=== PATIENT | female | born 1950 | race Hispanic/Latino ===

== ENCOUNTER → 2019-10-20 | Outpatient (CLI) | payer MEDICARE ==
--- NOTE | 2019-09-20 12:50 | NUR ---
PT WAS A NO SHOW FOR THIS DATE OF SERVICE
[~2019-10-20] VITALS: Ht 162.6 cm; Wt 82.1 kg
[~2019-10-20] MED LIST: REGADENOSON 0.4 MG/5 ML PF SYG IVP SCH
== END | disposition home or self-care (01) ==
LOC: SHCH 08:37
PROVIDERS: ATTEND Internal Medicine Cardiovascular Disease
DX: I25.89 Other forms of chronic ischemic heart disease (principal)
CPT/HCPCS: 78452; 93017; 96374; A9500 ×2; J2785

== ENCOUNTER 2020-07-26 08:00 | Day surgery (SDC) | payer MEDICARE ==
[2020-07-24 12:47] LABS: BASOPHILS % (AUTO) 0.4 % (0.0-5.0); EOSINOPHILS % (AUTO) 1.6 % (0.0-8.0); HEMATOCRIT 30.9 % (36-48); LYMPHOCYTES % (AUTO) 14.8 % (21.0-51.0); MEAN CORPUSCULAR HEMOGLOBIN 32.7 pg (27.0-33.0); MEAN CORPUSCULAR HGB CONC 31.4 g/dL (32.0-36.0); MONOCYTES % (AUTO) 6.7 % (3.0-13.0); NEUTROPHILS % (AUTO) 76.1 % (40.0-77.0); PLATELET COUNT (AUTO) 167 K/uL (130-400); RED BLOOD CELL COUNT(AUTO) 2.97 MIL/uL (4.00-5.50); RED CELL DISTRIBUTION WIDTH 13.9 % (11.0-15.5); WHITE BLOOD COUNT (AUTO) 6.8 K/uL (4.8-10.8)
[2020-07-24 13:02] LABS: INR 0.99 (0.85-1.15); PARTIAL THROMBOPLASTIN TIME 26.6 SEC (26.3-35.5); PROTHROMBIN TIME 10.7 SEC (9.6-11.6)
[2020-07-24 13:06] LABS: CREATININE 7.5 mg/dL (0.5-1.5); POTASSIUM 5.4 mmol/L (3.5-5.1)
[2020-07-26] VITALS (10 sets, daily range): BP systolic 132–152; BP diastolic 41–50
[~2020-07-26] VITALS: Ht 160 cm; Wt 82.6 kg
[~2020-07-26 08:00] MED LIST changes: +AMLO10TA7 PO; +ATOR20TA65 PO; +BUSP15TA3 PO; +CALC667T6 PO; +CLON0.1T PO; +GABA-529 PO; +HYDR-4154 PO; +INSU100V12 SQ; +LABE100T5 PO; +OMEP40CA13 PO; -REGADENOSON 0.4 MG/5 ML PF SYG IVP SCH
--- NOTE | 2020-07-26 08:20 | NUR ---
PATIENT ARRIVED TO GI LAB UNACCOMPANIED, PATIENT AAOX3, RESPIRATIONS UNLABORED, VITAL SIGNS STABLE. AV FISTULA TO LEFT UPPER ARM (BRUIT AND THRILL PRESENT). DISCOLORATION TO BLE'S AND ARMS. PROCEDURE VERIFIED WITH PATIENT AND HOSPITAL ROUTINE EXPLAINED. ALL QUESTIONS ADDRESSED.
[2020-07-26] MEDS ORDERED: HYDR-3830 PO (09:50)
[2020-07-26] MEDS ORDERED: TRAZ-185 PO (09:50)
[2020-07-26] MEDS ORDERED: SODIUM CHLORIDE 0.9% 1000ML 1,000 ML IV ONE (10:09)
[2020-07-26] MEDS ORDERED: NITROGLYCERIN 2 MG/VIAL VIAL IV ONE (10:16)
[2020-07-26] MEDS ORDERED: IOHEXOL-350 50ML VIAL IV ONE (10:16)
[2020-07-26] MEDS ORDERED: IOHEXOL 350 MG/ML 100ML INFUS..BTL IV ONE (10:16)
[2020-07-26] MEDS ORDERED: HEPARIN SODIUM 1000UNIT/ML 10ML VIAL ONE (10:16)
[2020-07-26] MEDS ORDERED: LIDOCAINE HCL 2% 20ML ONE (10:17)
--- NOTE | 2020-07-26 10:20 | NUR ---
PATIENT TRANSFERRED TO [facility] VIA BED BY MARY TAVAREZ
[2020-07-26] MEDS ORDERED: HYDRALAZINE HCL 20 MG/ML VIAL ONE (10:45)
[2020-07-26] MEDS ORDERED: GLUCAGON 1MG KIT 1 MG ML IM PRN (11:15)
[2020-07-26] MEDS ORDERED: DEXTROSE 50%-WATER 50 ML DISP.SYRIN IV PRN (11:15)
--- NOTE | 2020-07-26 11:20 | NUR ---
PATIENT RETURNED FROM [facility] VIA BED BY SATURNINO BARLOW RN. PATIENT AAOX3, RESPIRATIONS UNLABORED, VITAL SIGNS STABLE, DEBIES ANY PAIN AT THIS TIME. DRESSING TO RIGHT GROIN DRY/INTACT, NO HEMATOMA NOTED. AREA SOFT/NONTENDER.
--- NOTE | 2020-07-26 14:20 | NUR ---
activity: hob elevated 45 degrees with no complaints of dizziness or nausea.
--- NOTE | 2020-07-26 14:30 | NUR ---
HANDOFF REPORT GIVEN TO MICHELLE SANABRIA RN USING SBAR AT BEDSIDE, ALL QUESTIONS ADDRESSED.
== END 2020-07-26 15:05 | disposition home or self-care (01) ==
LOC: DAH 08:00
PROVIDERS: ATTEND Internal Medicine Cardiovascular Disease
DX: I25.10 Atherosclerotic heart disease of native coronary artery without angina pectoris (principal); I12.0 Hypertensive chronic kidney disease with stage 5 chronic kidney disease or end stage renal disease; E11.22 Type 2 diabetes mellitus with diabetic chronic kidney disease; N18.6 End stage renal disease; E78.5 Hyperlipidemia, unspecified; Z99.2 Dependence on renal dialysis; E11.59 Type 2 diabetes mellitus with other circulatory complications; Z79.4 Long term (current) use of insulin; Z79.01 Long term (current) use of anticoagulants; Z79.899 Other long term (current) drug therapy
CPT/HCPCS: 36415; 71045; 80048; 82948; 85025; 85610; 85730; 93005; 93458; A4215; A4216; A4221; A4222; A4223 ×3; A4606; A4663; C1760; C1894; J0360; J1644; J3490 ×2; J7030; Q9965; Q9967 ×2

== ENCOUNTER 2020-11-05 11:12 | Emergency (ER) | payer MEDICARE ==
[~2020-11-05] VITALS: Ht 149.9 cm; Wt 83.9 kg
[~2020-11-05 11:12] MED LIST changes: +AMLO-258 PO; -AMLO10TA7 PO; +HYDR-3830 PO; +TRAZ-185 PO
[2020-11-05 13:17] LABS: BASOPHILS % (AUTO) 0.2 % (0.0-5.0); EOSINOPHILS % (AUTO) 2.1 % (0.0-8.0); HEMATOCRIT 37.8 % (36-48); LYMPHOCYTES % (AUTO) 8.7 % (21.0-51.0); MEAN CORPUSCULAR HEMOGLOBIN 30.5 pg (27.0-33.0); MEAN CORPUSCULAR HGB CONC 31.7 g/dL (32.0-36.0); MEAN CORPUSCULAR VOLUME 96.2 fL (79-99); MONOCYTES % (AUTO) 2.7 % (3.0-13.0); NEUTROPHILS % (AUTO) 86.1 % (40.0-77.0); PLATELET COUNT (AUTO) 146 K/uL (130-400); RED BLOOD CELL COUNT(AUTO) 3.93 MIL/uL (4.00-5.50); RED CELL DISTRIBUTION WIDTH 13.2 % (11.0-15.5); WHITE BLOOD COUNT (AUTO) 5.3 K/uL (4.8-10.8)
[2020-11-05 13:20] LABS: CREATININE 6.3 mg/dL (0.5-1.5); POTASSIUM 4.8 mmol/L (3.5-5.1)
[2020-11-05 16:37] LABS: INR 1.07 (0.85-1.15); PROTHROMBIN TIME 11.4 SEC (9.6-11.6)
[2020-11-05 16:38] LABS: PARTIAL THROMBOPLASTIN TIME 31.9 SEC (26.3-35.5)
== END 2020-11-05 17:02 | disposition home or self-care (01) ==
LOC: EDH 11:12 → EDHIP 15:30 → UNDOADMIN 15:30 → UNDODISIN 17:02 → EDH 17:02
DX: I82.612 Acute embolism and thrombosis of superficial veins of left upper extremity (principal); I12.0 Hypertensive chronic kidney disease with stage 5 chronic kidney disease or end stage renal disease; N18.6 End stage renal disease; Z99.2 Dependence on renal dialysis; K21.9 Gastro-esophageal reflux disease without esophagitis; E66.9 Obesity, unspecified; Z90.49 Acquired absence of other specified parts of digestive tract; Z79.899 Other long term (current) drug therapy
CPT/HCPCS: 36415; 80048; 85025; 85610; 85730; 93005; 93971; G0378

== ENCOUNTER 2021-12-31 14:09 | Emergency (ER) | payer MEDICARE ==
[~2021-12-31] VITALS: Ht 157.5 cm; Wt 78.9 kg
[~2021-12-31 14:09] MED LIST changes: +FOLI1TAB85 PO; -OMEP40CA13 PO; +OMEP40CA21 PO
[2021-12-31] MEDS ORDERED: OCTYL 2-CYANOACRYLATE 1 EACH TP ONE ×2 (17:50→17:59)
[2021-12-31] MEDS ORDERED: CEPHALEXIN 500 MG CAPSULE ONE (18:06)
[2021-12-31] MEDS ORDERED: CEPH500B PO (18:22)
[2021-12-31] MEDS ORDERED: CEPHALEXIN 500 MG CAPSULE PO ONE (18:30)
[2021-12-31 20:50] VITALS: BP 162/64
== END 2021-12-31 20:51 | disposition home or self-care (01) ==
LOC: EDH 14:09
DX: S02.32XA Fracture of orbital floor, left side, initial encounter for closed fracture (principal); S01.81XA Laceration without foreign body of other part of head, initial encounter; E11.9 Type 2 diabetes mellitus without complications; I10 Essential (primary) hypertension; Z79.899 Other long term (current) drug therapy; Z79.4 Long term (current) use of insulin; W01.0XXA Fall on same level from slipping, tripping and stumbling without subsequent striking against object, initial encounter; Y93.89 Activity, other specified; Y92.89 Other specified places as the place of occurrence of the external cause; Y99.8 Other external cause status
CPT/HCPCS: 12011; 70450; 70486; 72125